=== PATIENT | female | born 1990 | race Caucasian/White ===

== ENCOUNTER 2024-07-14 05:30 | Emergency (ER) | payer BC ==
[~2024-07-14] VITALS: Ht 170.2 cm; Wt 88.5 kg
[2024-07-14] MEDS ORDERED: predniSONE 20 MG TABLET ONE (07:24)
[2024-07-14] MEDS ORDERED: diphenhydrAMINE HCL 50 MG CAPSULE ONE (07:24)
[2024-07-14] MEDS ORDERED: FAMOTIDINE (20 MG) 20 MG TABLET ONE (07:25)
[2024-07-14] MEDS: FAMOTIDINE (20 MG) 20 MG TABLET PO ONE (07:31)
[2024-07-14] MEDS: diphenhydrAMINE HCL 50 MG CAPSULE PO ONE (07:31)
[2024-07-14] MEDS: predniSONE 10 MG TABLET PO ONE (07:31)
[2024-07-14] MEDS: ALBUTEROL FS 2.5 MG/3 ML VIAL.NEB NEB ONE (07:44)
[2024-07-14] MEDS ORDERED: ALBUTEROL FS 2.5 MG/3 ML VIAL.NEB ONE (07:47)
[2024-07-14 07:50] VITALS: O2SAT 99
[2024-07-14 08:00] VITALS: O2SAT 100
[2024-07-14] MEDS ORDERED: DIPH25CA83 PO (09:03)
[2024-07-14] MEDS ORDERED: FAMO20TA80 PO (09:03)
[2024-07-14] MEDS ORDERED: PRED20TA PO (09:03)
[2024-07-14 09:13] VITALS: BP 117/85; TEMP 98.3; O2SAT 99
== END 2024-07-14 09:13 | disposition home or self-care (01) ==
LOC: ER 05:34
DX: T61.11XA Scombroid fish poisoning, accidental (unintentional), initial encounter (principal); R00.2 Palpitations; R21 Rash and other nonspecific skin eruption; R05.9 Cough, unspecified; Z79.52 Long term (current) use of systemic steroids; Y92.89 Other specified places as the place of occurrence of the external cause
CPT/HCPCS: 99285; 94640; Q0163; J7512 ×2